=== PATIENT | female | born 1960 | race Caucasian/White ===

== ENCOUNTER 2017-04-17 07:56 | Day surgery (SDC) | payer MEDICAID ==
[~2017-04-17] VITALS: Ht 149.9 cm; Wt 63.8 kg
[~2017-04-17 07:56] MED LIST: CALCIUM PO; LETR2.5T11 PO; STOMACH MEDS PO
[2017-04-17 09:10] VITALS: Ht 149.9 cm; Wt 63.8 kg
[2017-04-17] MEDS ORDERED: RANITIDINE PO (09:19)
[2017-04-17] MEDS ORDERED: OMEPRAZOLE PO (09:19)
[2017-04-17 10:00] VITALS: BP 123/63; PULSE 67; RESP 16
[2017-04-17] MEDS ORDERED: FENTAnyl 50 MCG/ML VIAL ONE (10:28)
[2017-04-17] MEDS ORDERED: MIDAZOLAM 1 MG/ML 2 ML INJ ONE ×2 (10:28)
[2017-04-17 10:53] VITALS: BP 146/76; PULSE 73; RESP 18
--- NOTE | 2017-05-01 12:56 | GILP ---
DATE OF PROCEDURE: SURGEON: Kane Woodard MD. PROCEDURE PERFORMED: Esophagogastroduodenoscopy and biopsy. PREOPERATIVE DIAGNOSIS: Abdominal pain. POSTOPERATIVE DIAGNOSES: 1. Gastritis. 2. Multiple gastric polyps. 3. Biopsies were taken for histopathology. 4. Hiatal hernia. 5. Gastroesophageal reflux disease. INDICATION: The patient is a 57-year-old female patient who had upper abdominal pain, not responding to therapy. The patient was scheduled for endoscopic examination for further evaluation. The procedure and possible complications were well-explained to the patient, the patient understood and consented to the procedure. DESCRIPTION OF PROCEDURE: The gastroscope was carefully introduced into the esophagus and the larynx, it was advanced to the stomach, into the pylorus, into the duodenal bulb and descending duodenum. Findings of the esophagus: The patient had hiatal hernia and gastroesophageal reflux disease. Stomach: The patient had gastric polyps. Biopsies were taken for histopathology. The duodenum was normal. The patient tolerated the procedure very well. There was no complications from the procedure. At the end of the procedure she was awake with stable vital signs. She was discharged home to the care of her family. IMPRESSION: 1. Hiatal hernia. 2. Gastroesophageal reflux disease. 3. Multiple gastric polyps, biopsies were taken for histopathology. PLAN: 1. Omeprazole 40 mg orally every day morning. 2. Zantac 300 mg orally every night at bedtime. 3. Bentyl 10 mg as needed for pain 3 times a day. 4. Await histopathology report. Dictated By: MD ASHLEY Garcia/[email or web address]/[email or web address] /Document#: [id number] CC: Kane Woodard MD;*[facility]*
== END 2017-04-17 12:31 | disposition home or self-care (01) ==
LOC: GIL 07:56
PROVIDERS: ATTEND Internal Medicine Gastroenterology
DX: K29.70 Gastritis, unspecified, without bleeding (principal); K31.7 Polyp of stomach and duodenum; K44.9 Diaphragmatic hernia without obstruction or gangrene; K21.9 Gastro-esophageal reflux disease without esophagitis
CPT/HCPCS: 43239; 88305; 88312; J2250; J3010; Z7610